=== PATIENT | male | born 1980 | race Hispanic/Latino ===

== ENCOUNTER 2017-06-18 13:50 | Emergency (ER) | payer OTHER ==
[2017-06-18] MEDS ORDERED: NACL 0.9% 1000 ML 1,000 ML IV ONE (15:56)
[2017-06-18] MEDS ORDERED: ZOFRAN IV ONE (15:56)
[2017-06-18] MEDS ORDERED: DILAUDID IV ONE (15:56)
[2017-06-18] MEDS ORDERED: GLUCAGEN IV ONE (15:56)
[2017-06-18 16:19] LABS: Basophils % (Auto) 0.3 % (0.0-1.8); Eosinophils # (Auto) 0.1 K/mm3 (0.0-0.4); Eosinophils % (Auto) 1.7 % (0.0-4.3); Hematocrit 44.8 % (35.5-45.6); Hemoglobin 15.5 gm/dl (11.8-15.2); Lymphocytes # (Auto) 1.3 K/mm3 (1.2-5.4); Lymphocytes % (Auto) 16.4 % (13.4-35.0); Mean Corpuscular HGB Conc 35 % (32-34); Mean Corpuscular Hemoglobin 30 pg (28-32); Mean Corpuscular Volume 87 fl (84-94); Monocytes # (Auto) 0.3 K/mm3 (0.0-0.8); Monocytes % (Auto) 4.3 % (0.0-7.3); Platelet Count 298 K/mm3 (140-440); Red Blood Count 5.17 M/mm3 (3.65-5.03); Red Cell Distribution Width 13.2 % (13.2-15.2)
[2017-06-18 16:40] LABS: BUN/Creatinine Ratio 17; Blood Urea Nitrogen 15 mg/dL (9-20); Calcium 9.6 mg/dL (8.4-10.2); Hemolysis Index 472
--- NOTE | 2017-06-18 17:05 | Emergency Department Report ---
ED General Adult HPI - General Chief complaint: Sore Throat Stated complaint: SOME THING IN THROAT Time Seen by Provider: 06/18/17 15:52 Source: patient Mode of arrival: Ambulatory Limitations: No Limitations - History of Present Illness Initial comments: Mr. Mcnally is a very pleasant healthy 29-year-old male presents with sensation of food stuck in his chest. He states that for several years on a monthly basis he has sensation of food getting stuck. He is able to pass the food with relaxation and carbonated beverages. Today at 1 PM while eating chicken he had the recurrence of food being stuck. He tried soda and soft food to help pass the swallowed food. For the past 4 hours he's been uncomfortable. Now is unable to swallow his own saliva. Denies any pain. Denies any fever or preceding illness. Has never had GI evaluation. Severity scale (0 -10): 7 - Related Data Previous Rx's Medication Instructions Recorded Last Taken Type Lansoprazole [Prevacid] 15 mg PO QDAY 30 Days #30 cap 06/18/17 Unknown Rx Allergies Allergy/AdvReac Type Severity Reaction Status Date / Time No Known Allergies Allergy Unverified 06/18/17 16:47 ED Review of Systems ROS: Stated complaint: SOME THING IN THROAT Other details as noted in HPI Comment: All other systems reviewed and negative Constitutional: denies: fever, malaise Respiratory: denies: cough Cardiovascular: denies: chest pain ED Past Medical Hx - Past Medical History Hx GERD: Yes Additional medical history: Esophageal - Surgical History Past Surgical History?: No Hx Coronary Stent: No Hx Open Heart Surgery: No Hx Pacemaker: No Hx Internal Defibrillator: No Hx Cholecystectomy: No Hx Appendectomy: No Hx Breast Surgery: No - Social History Smoking Status: Former Smoker - Medications Home Medications: Home Medications Medication Instructions Recorded Confirmed Last Taken Type Lansoprazole [Prevacid] 15 mg PO QDAY 30 Days #30 cap 06/18/17 Unknown Rx ED Physical Exam - General Limitations: No Limitations General appearance: alert, in no apparent distress - Head Head exam: Present: atraumatic, normocephalic - Eye Eye exam: Present: normal appearance - ENT ENT exam: Present: mucous membranes moist - Neck Neck exam: Present: normal inspection - Respiratory Respiratory exam: Present: normal lung sounds bilaterally. Absent: respiratory distress, wheezes, rales, rhonchi - Cardiovascular Cardiovascular Exam: Present: regular rate, normal rhythm, normal heart sounds. Absent: systolic murmur, diastolic murmur, rubs, gallop - GI/Abdominal GI/Abdominal exam: Present: soft, normal bowel sounds. Absent: distended, tenderness, guarding, rebound - Rectal Rectal exam: Present: deferred - Extremities Exam Extremities exam: Present: normal inspection - Back Exam Back exam: Present: normal inspection - Neurological Exam Neurological exam: Present: alert, oriented X3 - Psychiatric Psychiatric exam: Present: normal affect, normal mood - Skin Skin exam: Present: warm, dry, intact, normal color. Absent: rash - Other Other exam information: I observed patient attempting to swallow carbonated beverage. He immediately became uncomfortable and had to spit up the fluid which he attempted to swallow. ED Course Vital Signs 06/18/17 06/18/17 06/18/17 13:53 16:40 17:24 Temperature 98.7 F Pulse Rate 99 H Respiratory 18 Rate Blood Pressure 122/69 O2 Sat by Pulse 99 93 Oximetry 06/18/17 06/18/17 06/18/17 17:38 18:00 18:45 Temperature 98.7 F Pulse Rate 72 Respiratory 18 16 15 Rate Blood Pressure 105/63 112/66 O2 Sat by Pulse 99 99 Oximetry 06/18/17 06/18/17 06/18/17 18:57 19:02 19:04 Temperature Pulse Rate 74 64 77 Respiratory 14 10 L 12 Rate Blood Pressure 114/68 97/66 106/71 O2 Sat by Pulse 97 96 96 Oximetry 06/18/17 06/18/17 06/18/17 19:05 19:06 19:10 Temperature 98.4 F Pulse Rate 74 72 69 Respiratory 12 14 14 Rate Blood Pressure 105/71 104/72 99/61 O2 Sat by Pulse 96 95 96 Oximetry 06/18/17 06/18/17 06/18/17 19:15 19:20 19:25 Temperature Pulse Rate 68 76 75 Respiratory 13 13 15 Rate Blood Pressure 100/63 102/63 103/69 O2 Sat by Pulse 94 96 96 Oximetry 06/18/17 19:30 Temperature Pulse Rate 68 Respiratory 11 L Rate Blood Pressure 107/68 O2 Sat by Pulse 96 Oximetry - Reevaluation(s) Reevaluation #1: 06/18/17 17:10 Dr. Reaves GI beauty consultant will evaluate patient and perform endoscopy. ED Medical Decision Making - Lab Data Result diagrams: 06/18/17 16:01 06/18/17 16:01 - Medical Decision Making Dysphagia due to fluid bolus, unable to tolerate secretions and liquid intake. Dr. Reaves GI consult performed EGD in ED, pushed food into stomach. Ring esophageal seen at GE junction I wrote prescription for Prevacid as recommended. Dr. Reaves recommended f/u in 2 -4 weeks for dilation. Critical care attestation.: If time is entered above; I have spent that time in minutes in the direct care of this critically ill patient, excluding procedure time. ED Disposition Clinical Impression: Food impaction of esophagus, Schatzki's ring of distal esophagus Disposition: - TO HOME OR SELFCARE Is pt being admited?: No Does the pt Need Aspirin: No Condition: Stable Instructions: Food Impaction (ED), Chronic Dysphagia (ED) Additional Instructions: You have a Schatzki's ring Prescriptions: Lansoprazole [Prevacid] 15 mg PO QDAY 30 Days #30 cap Referrals: GRACE REAVES MD [Staff Physician] - 7-10 days Time of Disposition: 21:12
--- NOTE | 2017-06-18 18:32 | Gastroenterology Consultation ---
History of Present Illness - Reason for Consult Consult date: 06/18/17 Food Impaction Requesting physician: MARCOS MI - History of Present Illness The patient has a several year hx of intermittent dysphagia but no prior EGD. He was eating chicken earlier today with acute impaction/chest pain about 1 PM. He was not able to get this down with fluids. He has no SOB, but says the pain is still moderate. He has no blood in the emesis, and no melena. He denies fevers or chills. He has no family hx of esophageal cancer. Past History Past Medical History: other Past Surgical History: No surgical history Social history: denies: smoking, alcohol abuse, prescription drug abuse Family history: no significant family history Medications and Allergies Allergies Allergy/AdvReac Type Severity Reaction Status Date / Time No Known Allergies Allergy Unverified 06/18/17 16:47 Active Meds: --I HAVE REVIEWED AND RECONCILED MEDICATIONS-- Review of Systems - Review of Systems All systems: negative (as noted in the HPI.) Exam - Constitutional Vital Signs: Temp Pulse Resp BP Pulse Ox 98.7 F 99 H 16 105/63 99 06/18/17 13:53 06/18/17 13:53 06/18/17 18:00 06/18/17 18:00 06/18/17 17:38 General appearance: no acute distress - EENT Eyes: PERRL, EOM intact - Respiratory Respiratory effort: normal Respiratory: bilateral: CTA - Cardiovascular Rhythm: regular Heart Sounds: Present: S1 & S2 - Gastrointestinal General gastrointestinal: Present: soft, non-tender, non-distended - Labs CBC & Chem 7: 06/18/17 16:01 06/18/17 16:01 Lab Results: Laboratory Results - last 24 hr 06/18/17 06/18/17 16:01 16:01 WBC 8.1 RBC 5.17 H Hgb 15.5 H Hct 44.8 MCV 87 MCH 30 MCHC 35 H RDW 13.2 Plt Count 298 Lymph % (Auto) 16.4 [place] % (Auto) 4.3 Eos % (Auto) 1.7 Baso % (Auto) 0.3 Lymph # 1.3 [place] # 0.3 Eos # 0.1 Baso # 0.0 Seg Neutrophils % 77.3 H Seg Neutrophils # 6.3 Sodium 139 Potassium 5.6 H Chloride 98.0 Carbon Dioxide 22 Anion Gap 25 BUN 15 Creatinine 0.9 Estimated GFR > 60 BUN/Creatinine Ratio 17 Glucose 104 H Calcium 9.6 Assessment and Plan - Patient Problems (1) Food impaction of esophagus Current Visit: Yes Status: Acute Plan to address problem: - Risks/benefits of endoscopy discussed. - Will proceed with EGD with conscious sedation.
[2017-06-18] MEDS ORDERED: WATER FOR IRRIG STERILE IR ONE (18:37)
[2017-06-18] MEDS ORDERED: NACL 0.9% 1000 ML 1,000 ML ONE (18:37)
[2017-06-18] MEDS ORDERED: VERSED IV ONE (18:38)
[2017-06-18] MEDS ORDERED: SUBLIMAZE ONE (18:38)
--- NOTE | 2017-06-18 19:26 | Post Operative Note ---
Pre-op diagnosis: Food impaction Post-op diagnosis: other (Same, Schatzki Ring) Findings: 1. Food (chicken) in esophagus; pushed into stomach 2. Moderate food/liquid in esophagus 3. Moderate ring at GE junction Procedure: EGD with foreign body disimpaction Anesthesia: other (Conscious sedation per protocol: Fentanyl 50mcg IV, Versed 4mg IV) Surgeon: GRACE SEVILLA Estimated blood loss: none Pathology: none Specimen disposition: other (N/A) Condition: stable Disposition: same day (Recs: 1. Mechanical Soft Diet. 2. Prevacid 15mg (OTC) 1 daily for 30 days. 3. Repeat EGD in 2-4 weeks for dilation. 4. Resume usual diet/activities tomorrow.)
[2017-06-18 21:23] VITALS: BP 113/66
--- NOTE | 2017-06-18 21:23 | Operative Report ---
PROCEDURE PERFORMED: Esophagogastroduodenoscopy with food disimpaction. PREOPERATIVE DIAGNOSIS: Food impaction. POSTOPERATIVE DIAGNOSES: Food impaction, Schatzki's ring. ENDOSCOPIST: Amor Reaves MD INSTRUMENT: Vacunek video endoscope. MEDICATIONS: Conscious sedation per the hospital conscious sedation protocol. The patient was monitored both during and for 30 minutes after the procedure by both myself and a nurse qualified to give conscious sedation. The total amount of medications was fentanyl 50 mcg IV, Versed 4 mg IV. For further details, please see the nurse's note None. BLOOD LOSS: None. COMPLICATIONS: None. SPECIMENS: None. IMPLANTS: None. ASSISTANTS: None. CONDITION AT COMPLETION: Stable. TECHNIQUE: The patient was informed of the risks and benefits of the procedure. He signed the informed consent to proceed. He was placed in a left lateral decubitus position. The above sedative medications were given. His vital signs remained stable throughout the procedure. The endoscope was advanced from the mouth to the gastroesophageal junction, at that point, a piece of meat was encountered and was pushed gently into the gastric lumen with no evidence of trauma. The endoscope was then advanced to the second portion of the duodenum, the bowel was insufflated and the endoscope was slowly withdrawn. FINDINGS: 1. Food (checked) in the distal esophagus at the gastroesophageal junction; this was pushed gently into the stomach. 2. Moderate food/liquid in the fundus of the stomach, but otherwise no abnormalities in the stomach and duodenum. 3. There was a moderate ring, likely from acid reflux at the GE junction. RECOMMENDATIONS: 1. Mechanical soft diet. 2. Prevacid 15 mg daily for the next 30 days. 3. Repeat upper endoscopy in 2-4 weeks to both biopsy the esophagus for eosinophilia as well as dilate the Schatzki's ring. 4. Resume usual diet and activities within the next 24 hours. JOB# [id number] DANIEL/SUZETTE
== END 2017-06-18 21:22 | disposition home or self-care (01) ==
LOC: ED 13:50
DX: T18.128A Food in esophagus causing other injury, initial encounter (principal); K22.2 Esophageal obstruction; K21.9 Gastro-esophageal reflux disease without esophagitis; Z87.891 Personal history of nicotine dependence; X58.XXXA Exposure to other specified factors, initial encounter; Y93.89 Activity, other specified; Y99.8 Other external cause status; Y92.89 Other specified places as the place of occurrence of the external cause
CPT/HCPCS: 36415; 43247; 80048; 85025; 96361; 96374; 96375; 99284; J1170; J1610; J2250; J2405; J3010; J7030